=== PATIENT | female | born 1950 | race Caucasian/White ===

== ENCOUNTER → 2018-03-10 | Outpatient (CLI) | payer OTHER | LOC: GIMAGING 16:43 | PROVIDERS: ATTEND Nurse Practitioner Family | DX: M48.56XA Collapsed vertebra, not elsewhere classified, lumbar region, initial encounter for fracture (principal); M51.36 Other intervertebral disc degeneration, lumbar region; M51.37 Other intervertebral disc degeneration, lumbosacral region | CPT/HCPCS: 72100-PO ==

== ENCOUNTER → 2018-09-07 | Outpatient (CLI) | payer OTHER | LOC: GIMAGING 09:02 | PROVIDERS: ATTEND Nurse Practitioner Acute Care | DX: R91.8 Other nonspecific abnormal finding of lung field (principal); R05 Cough; R06.02 Shortness of breath | CPT/HCPCS: 71046-PO ==

== ENCOUNTER 2018-09-12 10:04 | Emergency (ER) | payer OTHER ==
--- NOTE | 2018-09-12 10:42 | EDPHY ---
H & P Stated Complaint: SOB/pna dx on sat Time Seen by Provider: 09/12/18 10:29 HPI/ROS: CHIEF COMPLAINT: Chest pain, shortness of breath HISTORY OF PRESENT ILLNESS: 68-year-old female presents with chest pain and shortness of breath. She awoke this morning feeling anxious and short of breath. Since awakening, the shortness of breath is constant and increases with exertion. Associated with very mild chest discomfort. The chest discomfort is dull, achy and constant. Onset cough, sore throat and fever 12 days ago. She was diagnosed with pneumonia 6 days ago. Chest x-ray revealed a left upper lobe infiltrate. She was initially placed on a Z-Steve, which she completed. She started taking Levaquin yesterday. The cough is resolving. Onset of a rash in the left upper back area 5 days ago, typical of previous shingles outbreaks. Started acyclovir 5 days ago. No fever today. No prior cardiopulmonary disease. REVIEW OF SYSTEMS: complete 10 point ROS reviewed and is negative except for the noted elements in the HPI - Personal History Current Tetanus/Diphtheria Vaccine: Yes - Medical/Surgical History Hx Asthma: No Hx Chronic Respiratory Disease: No Hx Diabetes: No Hx Cardiac Disease: No Hx Renal Disease: No Hx Cirrhosis: No Hx Alcoholism: No Other PMH: HTN, fibromyalgia, hypothyroidism, herpes - Social History Smoking Status: Never smoked - Physical Exam Exam: General Appearance: Alert, pleasant, nontoxic-appearing Eyes: Pupils equal and round, no conjunctival pallor ENT, Mouth: Mucous membranes moist Neck: Normal inspection Respiratory: Lungs are clear to auscultation Cardiovascular: Regular rate and rhythm Gastrointestinal: Abdomen is soft and nontender Neurological: A&O, nonfocal, normal gait Skin: Warm and dry, area of erythema left paraspinous area Extremities: Nontender, no pedal edema Psychiatric: Mood and affect normal Constitutional: Initial Vital Signs Temperature (C) 36.5 C 09/12/18 10:09 Heart Rate 89 09/12/18 10:09 Respiratory Rate 16 09/12/18 10:09 Blood Pressure 161/92 H 09/12/18 10:09 O2 Sat (%) 97 09/12/18 10:09 O2 Delivery Mode Room Air Allergies/Adverse Reactions: acetaminophen [From Percocet] Allergy (Verified 09/12/18 10:13) codeine Allergy (Verified 09/12/18 10:13) duloxetine [From Cymbalta] Allergy (Verified 09/12/18 10:13) fluoxetine [From Prozac] Allergy (Verified 09/12/18 10:13) oxycodone [From Percocet] Allergy (Verified 09/12/18 10:13) paroxetine [From Paxil] Allergy (Verified 09/12/18 10:13) Home Medications: Medication Instructions Recorded Acyclovir 09/12/18 Gabapentin 09/12/18 Levothyroxine 09/12/18 Lisinopril 09/12/18 Sertraline HCl 09/12/18 ZOLMitriptan 09/12/18 Medical Decision Making - Diagnostics EKG Interpretation: EKG interpreted by me reveals NSR, rate 78, abn R wave progression, no ST/T changes. Interpretation: abnormal EKG. Imaging Results: Chest X-Ray 09/12/18 10:30 Impression: Improving left upper lobe consolidation suggesting resolving pneumonia. Continued radiographic follow-up is recommended. Chest/Thorax CTA 09/12/18 11:22 Impression: 1. No evidence of pulmonary embolism. 2. Severe left upper lobe pneumonia with mediastinal and left axillary lymphadenopathy which is likely reactive in nature, continued radiographic surveillance is recommended to document resolution. Gina Herman was notified of these findings by telephone at 12:35 PM on 09/12/2018 Imaging: Discussed imaging studies w/ call center director Radiologist, I viewed and interpreted images myself ED Course/Re-evaluation: This pt with recent dx of pneumonia presents with SOB. VS unremarkable, including O2 sat 96% RA. Clinically, she is improving, with resolving cough and no fever x 24 hrs. EKG reveals no evidence of ischemia or dysrhythmia and troponin normal. CXR reveals JUAN M infiltrate, c/w clinical history. d-dimer ordered and is elevated at 1.1, CTA obtained. CTA chest reveals pneumonia with reactive adenopathy, no evidence of PE. Results d/w pt, reassured. Ambulated throughout ED, O2 sat greater than 90%, pt not SOB with ambulation. Admission d /w pt, she feels well enough (and strongly prefers) to go home. I feel that this pt is safe/stable for d/c. Warning signs discussed. SOB most likely secondary to pneumonia. No evidence for cardiac etiology. Heart score 2 (age, HTN). Shared decision-making with pt, prefers to go home, pneumonia most likely etiology, warning signs discussed. Differential Diagnosis: includes though not limited to PE, empyema, PTX, pulm edema, ACS. - Data Points Laboratory Results: Laboratory Results 09/12/18 10:29 09/12/18 10:29 Point of Care Test Results: Chemistry 09/12/18 10:58 POC Troponin I 0.00 ng/mL ng/mL (0.00-0.08) Departure - Departure Disposition: Home, Routine, Self-Care Clinical Impression: Pneumonia Qualifiers: Pneumonia type: due to unspecified organism Laterality: left Lung location: upper lobe of lung Qualified Code(s): J18.1 - Lobar pneumonia, unspecified organism Condition: Good Instructions: Bacterial Pneumonia (ED), Chest Pain (ED) Additional Instructions: Return for worsening symptoms or any concerns. Follow-up in 2 days for recheck. Referrals: Siri Hagen MD [Primary Care Provider] - As per Instructions
[2018-09-12 10:59] LABS: PLATELET COUNT 450 10^3/uL (150-400)
[2018-09-12] MEDS ORDERED: IOPAMIDOL (ISOVUE 370) 75 ML BTL IV ONE (11:40)
[2018-09-12 13:24] VITALS: BP 160/89
--- NOTE | 2018-09-12 13:56 | CPEKG ---
Test Reason : OPEN Blood Pressure : / mmHG Vent. Rate : 078 BPM Atrial Rate : 077 BPM P-R Int : 179 ms QRS Dur : 100 ms QT Int : 406 ms P-R-T Axes : 017 -09 032 degrees QTc Int : 463 ms Sinus rhythm Abnormal R-wave progression, early transition Confirmed by Calista Sutton ([id number]) on 09/12/2018 1:56:28 PM Referred By: Confirmed By:Calista Sutton
== END 2018-09-12 13:34 | disposition home or self-care (01) ==
DX: J18.1 Lobar pneumonia, unspecified organism (principal); I10 Essential (primary) hypertension
CPT/HCPCS: 71046; 71275; 93005; 99285; Q9967; 84484-ER

== ENCOUNTER → 2018-10-02 | Outpatient (CLI) | payer OTHER | LOC: GIMAGING 09:20 | PROVIDERS: ATTEND Family Medicine | DX: J18.9 Pneumonia, unspecified organism (principal) | CPT/HCPCS: 71046-PO ==

== ENCOUNTER → 2018-10-11 | Outpatient (CLI) | payer OTHER | LOC: FIMAGING 14:22 ==